=== PATIENT | female | born 1955 | race Caucasian/White ===

== ENCOUNTER 2019-12-20 06:37 | Inpatient (IN) ==
--- NOTE | 2019-12-13 15:00 | PAT Medication Instructions ---
Medication Instructions Date of Service December 13, 2019 Home Medications cholecalciferol (vitamin D3) 125 mcg PO QAM cyanocobalamin (vitamin B-12) 1,000 mcg PO QAM fenofibrate micronized 200 mg PO QAM pantoprazole 40 mg PO QAM rosuvastatin 20 mg PO QAM STOP taking 48 hours before surgery fenofibrate micronized 200 mg PO QAM DO NOT take the morning of surgery cholecalciferol (vitamin D3) 125 mcg PO QAM cyanocobalamin (vitamin B-12) 1,000 mcg PO QAM Take morning of surgery With a small sip of water, OTHERWISE NOTHING TO EAT OR DRINK AFTER MIDNIGHT: pantoprazole 40 mg PO QAM rosuvastatin 20 mg PO QAM Other Notes If you have any questions please call us at [phone] or [phone] or [phone] or [phone]
--- NOTE | 2019-12-15 12:13 | Anesthesiology Consultation ---
Date of Service December 15, 2019 Assessment & Plan (1) Encounter for pre-operative examination: COVID Status: As of 12/14 assessment, patient denies travel to endemic area, known exposure/sick contacts, or symptoms of COVID19. Patient instructed that they and their household members must follow strict social distancing guidelines, wear a mask in public and avoid travel for 14 days prior to surgery. Preoperative COVID19 testing completed today 12/14 at surgeon's office. 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 PCP Clearance 12/10/19 (addendum 12/16) = "Labs, chest x-ray, ekg grossly normal. Medically cleared for surgery." Chart Review Chart Review: Acceptable Risk for Surgery and Patient seen in Pre Admission Testing Teaching & Discussion Instructed NPO after midnight before surgery, except medications with 15 cc of w ater. Medication instructions provided according to the PAT guidelines. History Surgery Operation Date: 12/20/19 09:00 Proposed Procedures p Right Total Knee Arthroplasty - John Paul Sarabia DO Height/Weight Height: 5 ft 6 in Weight: 89.4 kg Allergies Allergy/AdvReac Type Severity Reaction Status Date / Time thimerosal Allergy Intermediate Hives Verified 12/07/19 15:32 Medications Home Medications Medication Instructions Recorded Confirmed Last Taken cholecalciferol (vitamin D3) 125 mcg PO QAM 12/07/19 12/07/19 Unknown [Vitamin D3] cyanocobalamin (vitamin B-12) 1,000 mcg PO QAM 12/07/19 12/07/19 Unknown fenofibrate micronized 200 mg PO QAM 12/07/19 12/07/19 Unknown pantoprazole 40 mg PO QAM 12/07/19 12/07/19 Unknown rosuvastatin 20 mg PO QAM 12/07/19 12/07/19 Unknown Past Medical History Medical History (Updated 12/15/19 @ 12:15 by Drew Bryant) GERD (gastroesophageal reflux disease) Hyperlipidemia Osteoarthritis Pulmonary embolism OVER 40 YEARS AGO (CAUSED BY CONTROL) Restless leg syndrome Exercise / Class Metabolic Activity II 4-5 Yardwork/Stairs/Walk up hill Past Family History Family History (Updated 12/07/19 @ 15:40 by Rupali Piña RN) Other No significant family history Past Surgical History Surgical History H/O eye surgery TEAR DUCT SURGERY History of appendectomy History of bilateral tubal ligation History of colonoscopy History of esophagogastroduodenoscopy (EGD) History of flexible sigmoidoscopy History of hysteroscopy History of tonsillectomy and adenoidectomy History of total knee replacement LEFT [place] teeth removed Past Anesthesia History No Hx of Anesthesia Complications and No Family Hx of Anesthesia Complications History of PONV No Hx of PONV and Hx of Motion Sickness Social History Smoking Status: Never smoker Do You Dip or Chew Tobacco: No Hx Alcohol Use: Yes Alcohol type: beer alcohol intake frequency: a few times a month Hx Substance Use: No substance use type: does not use Review of Systems Pt denies any recent chest pain, shortness of breath, palpitations, cough above baseline cough she feels due to seasonal allergies, fever, URI, or uncontrolled acid reflux. Physical Exam Vital Signs BP: 132/86 P: 73bpm SPO2: 96% RA T: 98.1 F R: 16 ENMT Mouth: + dental bridge (upper R) and + dental restorations (bridge and one crown); no chipped teeth and no loose teeth Thyromental Distance: < 3.5 Finger Breadths (3) Mallampati Class: II Neck normal visual inspection; neck extension not limited Respiratory normal respiratory effort Auscultation: lungs clear to auscultation bilaterally Cardiovascular Rate/Rhythm: regular rate and regular rhythm Heart Sounds: no murmur Extremities: no edema Testing Laboratory Results 12/15/19 12:20 12/15/19 12:20 PT 10.5 Seconds (9.0-12.0) 12/15/19 12:20 INR 1.0 (0.9-1.1) 12/15/19 12: APTT 25.2 Seconds (21.0-31.0) 12/15/19 12:20 Hemoglobin A1c 6.0 % (4.5-5.6) H 12/15/19 12:20 Urine Color Yellow 12/15/19 Unknown Urine Appearance Clear (Clear) 12/15/19 Unknown Urine pH 7.5 (4.5-7.5) 12/15/19 Unknown Ur Specific [place] 1.008 (1.000-1.030) 12/15/19 Unknown Urine Protein Negative (Negative) 12/15/19 Unknown Urine Glucose (UA) Negative (Negative) 12/15/19 Unknown Urine Ketones Negative (Negative) 12/15/19 Unknown Urine Nitrite Negative (Negative) 12/15/19 Unknown Ur Leukocyte Esterase Negative (Negative) 12/15/19 Unknown Blood Type A Positive 12/15/19 12:20 Antibody Screen NEGATIVE 12/15/19 12:20 12/15/19 Unknown Urine Culture - Final Urine,Clean Catch Three types of organisms present, all low counts probable skin lazarus. No further identifications or sensitivities to follow. Electrocardiogram Date: 12/15/19 Findings: + NSR @ (64bpm with 1st degree AV block) and + no change from (2016) Low voltage QRS. Chest X-Ray Date: 12/15/19 1. No acute cardiopulmonary findings. 2. Mild cardiomegaly (unchanged).
--- NOTE | 2019-12-15 13:17 | XRay Report ---
XR chest Pre-admission PA/Lat CLINICAL HISTORY: Preoperative evaluation. COMPARISON STUDY: Chest radiograph September 19, 2015. FINDINGS: Lung volumes are normal. There is no pneumothorax or pleural effusion. There is no consolid ation or evidence for pulmonary edema. Mild cardiomegaly is unchanged. IMPRESSION: 1. No acute cardiopulmonary findings. 2. Mild cardiomegaly. ACT 112: Negative or not required by law. Electronically signed by: David Bernal M.D. 12/15/2019 1:15 PM
[2019-12-15 13:21] LABS: Basophils # (auto) 0.05 K/uL (0-0.2); Basophils % (auto) 0.7 %; Eosinophils # (auto) 0.24 K/uL (0-0.5); Eosinophils % (auto) 3.2 %; Hematocrit (blood only) 38.4 % (37-47); Hemoglobin 12.8 g/dL (12.0-16.0); Immature Granulocytes # (auto) 0.02 K/uL (0.00-0.02); Immature Granulocytes % (auto) 0.3 %; Lymphocytes # (auto) 2.47 K/uL (1.2-3.4); Lymphocytes % (auto) 32.9 %; Mean Corpuscular Hgb Conc 33.3 g/dL (32-36); Mean Corpuscular Volume 89.9 fL (80-100); Mean Platelet Volume 9.8 fL (7.4-10.4); Monocytes # (auto) 0.62 K/uL (0.11-0.59); Monocytes % (auto) 8.3 %; Neutrophils # (auto) 4.11 K/uL (1.4-6.5); Neutrophils % (auto) 54.6 %; Platelet Count 365 K/uL (130-400); RDW Coefficient of Variation 13.1 % (11.5-14.5); RDW Standard Deviation 42.8 fL (36.4-46.3); Red Blood Count 4.27 M/uL (4.2-5.4); White Blood Count 7.51 K/uL (4.8-10.8)
[2019-12-15 13:22] LABS: Appearance Urine Clear (Clear); Bilirubin Urine Negative (Negative); Blood Urine Negative (Negative); Color Urine Yellow; Glucose Urine UA Negative (Negative); Ketones Urine Negative (Negative); Leukocyte Esterase Urine Negative (Negative); Nitrite Urine Negative (Negative); Protein Urine Negative (Negative); Specific Gravity Urine 1.008 (1.000-1.030); Urobilinogen Urine Negative (Negative); pH Urine 7.5 (4.5-7.5)
[2019-12-15 13:32] LABS: BUN Creatinine Ratio 18.7 (10-20); Calcium 10.3 mg/dl (8.5-10.1); Creatinine Clr Calc Pharmacy 90.2 ml/min; Est GFR (African American) 105.4; Est GFR (Non-African American) 90.9; Potassium 4.1 mmol/L (3.5-5.1)
[2019-12-15 13:33] LABS: Partial Thromboplastin Ratio 0.9; Partial Thromboplastin Time 25.2 Seconds (21.0-31.0); Prothrombin Time 10.5 Seconds (9.0-12.0)
[2019-12-15 13:34] LABS: Estimated Average Glucose 126 mg/dl
--- NOTE | 2019-12-15 14:39 | Electrocardiogram Report ---
Test Reason : Blood Pressure : / mmHG Vent. Rate : 064 BPM Atrial Rate : 064 BPM P-R Int : 232 ms QRS Dur : 086 ms QT Int : 412 ms P-R-T Axes : 024 018 062 degrees QTc Int : 425 ms Sinus rhythm with 1st degree A-V block Low voltage QRS Borderline ECG When compared with ECG of 19-SEP-2015 11:39, No significant change was found Confirmed by Domenico Kumar ([id number]) on 12/15/2019 2:38:50 PM Referred By: John Paul Sarabia Confirmed By:Alfredito Kumar
--- NOTE | 2019-12-19 14:39 | History & Physical Report ---
Date of Service December 20, 2019 Assessment & Plan (1) Degenerative joint disease of knee, right: I have indicated the patient for right total knee replacement. The risks, benefits and complications of surgery were explained to the patient which include but not limited to infection, acute blood loss, DVT/PE, injury to nerves, vessels, bone, soft tissue, arthrofibrosis, chronic pain, failure of the prosthesis, knee dislocation, leg length discrepancy, need for additional surgery, cardiac and pulmonary events and . The patient wished to proceed with surgery and informed consent was obtained at this time. We will plan for lovenox post-operatively for DVT prophylaxis. Upon discharge the patient will be discharged home with home health services. Appropriate clearances by PCP w ere obtained. History of Present Illness Chief Complaint: Right knee pain/djd Primary Care Provider: Jose Lee The patient is a 64 year old female who presents with complaints of severe right knee pain and DJD. The patient has failed outpatient conservative treatments to this point which included NSAIDS, PT, home exercise/walking program, declined further conservative treatments such as injections due to ineffectiveness previously. The patient's pain and limited function have progressed to the point where they severely hinder their activities of daily living and they no longer tolerate exercise programs. They are requesting to proceed with total knee replacement surgery. Allergies Allergy/AdvReac Type Severity Reaction Status Date / Time thimerosal Allergy Intermediate Hives Verified 12/20/19 07:49 Home Medications Home Medications Medication Instructions Recorded Confirmed Type cholecalciferol (vitamin D3) 125 mcg PO QAM 12/07/19 12/07/19 History [Vitamin D3] cyanocobalamin (vitamin B-12) 1,000 mcg PO QAM 12/07/19 12/20/19 History fenofibrate micronized 200 mg PO QAM 12/07/19 12/07/19 History pantoprazole 40 mg PO QAM 12/07/19 12/20/19 History rosuvastatin [Crestor] 20 mg PO QAM 12/07/19 12/07/19 History Past Med/Surg History Medical History GERD (gastroesophageal reflux disease) Hyperlipidemia Osteoarthritis Pulmonary embolism OVER 40 YEARS AGO (CAUSED BY CONTROL) Restless leg syndrome Surgical History H/O eye surgery TEAR DUCT SURGERY History of appendectomy History of bilateral tubal ligation History of colonoscopy History of esophagogastroduodenoscopy (EGD) History of flexible sigmoidoscopy History of hysteroscopy History of tonsillectomy and adenoidectomy History of total knee replacement LEFT [place] teeth removed Family History Other No significant family history Social History Smoking Status: Never smoker Second Hand Exposure: Yes ( SMOKES); Do You Dip or Chew Tobacco: No; Tobacco Cessation Education Requested by Patient: No Hx Alcohol Use: Yes Alcohol type: beer Hx Substance Use: No Preferred Language: Mal[place]ian Logistics Director Required: No Beliefs That Will Affect Care: None Current Living Situation: Spouse Feels Safe at Home: Yes Safety Concerns: Feels Safe At This Time Assistive Devices: Glasses Review of Systems Review of Systems: All systems reviewed & are unremarkable except as noted in HPI & below Constitutional: as per Subjective / HPI Physical Exam Physical Exam: RLE NVSI +EHL/FHL/TA/GS SILT grossly, +2 DP pulse, compartments soft NT, limited painful ROM of the knee, 0-125 degrees flexion, +crepitus Constitutional: WD/WN, vitals as above Eyes: PERRL, conjunctivae normal, anicteric sclerae ENMT: external ear and nose normal, oropharynx normal Neck: trachea midline, no thyromegaly Respiratory: normal respiratory effort, lungs clear to auscultation Cardiovascular: RRR, no murmur, no edema Gastrointestinal (Abdomen): normal bowel sounds, soft, nontender, no hepatosplenomegaly Musculoskeletal: no cyanosis or clubbing, extremities motor strength 5/5 Skin: no rashes, warm and dry Neurologic: patellar DTR's 2+ bilat, sensation intact Psychiatric: A+Ox3, euthymic affect Lymphatic: no cervical or axillary lymphadenopathy Results & Data Results & Data ([facility]) Diagnostic Findings Multiple views of the knee demonstrates severe tricompartmental DJD with complete loss of the patellofemoral joint space. +osteophytes, +sclerosis. Pre Admission Testing Addendum Laboratory Results 12/15/19 12:20 12/15/19 12:20 PT 10.5 Seconds (9.0-12.0) 12/15/19 12:20 INR 1.0 (0.9-1.1) 12/15/19 12:20 APTT 25.2 Seconds (21.0-31.0) 12/15/19 12:20 Hemoglobin A1c 6.0 % (4.5-5.6) H 12/15/19 12:20 Urine Color Yellow 12/15/19 Unknown Urine Appearance Clear (Clear) 12/15/19 Unknown Urine pH 7.5 (4.5-7.5) 12/15/19 Unknown Ur Specific [place] 1.008 (1.000-1.030) 12/15/19 Unknown Urine Protein Negative (Negative) 12/15/19 Unknown Urine Glucose (UA) Negative (Negative) 12/15/19 Unknown Urine Ketones Negative (Negative) 12/15/19 Unknown Urine Nitrite Negative (Negative) 12/15/19 Unknown Ur Leukocyte Esterase Negative (Negative) 12/15/19 Unknown Blood Type A Positive 12/15/19 12: Antibody Screen NEGATIVE 12/15/19 12:20 12/15/19 Unknown Urine Culture - Final Urine,Clean Catch Three types of organisms present, all low counts probable skin lazarus. No further identifications or sensitivities to follow.
[~2019-12-20 06:37] MED LIST: ACETAMINOPHEN 500 MG TAB PO SCH; CEFAZOLIN 2000MG 2,000 MG/15 ML SYR IV SCH; CeleBREX 200 MG CAP PO SCH; FAMOTIDINE 20 MG TAB PO SCH; GABAPENTIN 300 MG CAP PO SCH; LR 500ML BOLUS, THEN 15ML/HR IV SCH; ROPIVACAINE 0.5% HCL/PF 150 MG, BUPIVACAINE 0.5% MPF 30 ML, EPINEPHrine 30MG/30ML (OR U... INSTIL SCH; TRANEXAMIC ACID 1,000 MG **IV Intra-op IV SCH; TRANEXAMIC ACID 1,000 MG **IV Pre-op IV SCH; dexAMETHasone 4 MG TAB PO SCH
[2019-12-20] MEDS ORDERED: BUPIVACAINE/EPINEPHRINE 0.25% 1:200,000 30 ML VIAL ONE (06:40)
[2019-12-20] MEDS ORDERED: DEXAMETHASONE SOD INJ 4 MG/ML VIAL ONE (06:40)
[2019-12-20] MEDS ORDERED: MIDAZOLAM HCL 1 MG/ML 2ML VIAL ONE (07:48)
[2019-12-20] MEDS ORDERED: fentaNYL citrate 100 MCG/2 ML VIAL ONE (07:48)
[2019-12-20] MEDS ORDERED: LIDOCAINE HCL 2% 2 ML VIAL/AMP(20MG/ML) INFIL ONE (07:49)
[2019-12-20] MEDS ORDERED: PROPOFOL IV EMULSION 10 MG/ML 20 ML VIAL IV ONE ×3 (07:49→10:54)
[2019-12-20] MEDS ORDERED: ONDANSETRON INJ 2 MG/ML 2 ML VIAL ONE (07:49)
--- NOTE | 2019-12-20 09:12 | History & Physical Bridge Note ---
Date of Service December 20, 2019 History & Physical Bridge Note I have examined the patient, reviewed the History & Physical and in the interval since the performance of the History & Physical I have noted the following changes of clinical significance: no changes noted
[2019-12-20] MEDS ORDERED: BUPIVACAINE 0.5 % 5 MG/1 ML PF 10ML VIAL ONE (09:17)
[2019-12-20] MEDS ORDERED: BACITRACIN INJ 50,000 UNIT VIAL ONE (09:18)
[2019-12-20] MEDS ORDERED: ORTHO JOINT ANESTHETIC ONE (09:18)
[2019-12-20] MEDS ORDERED: ONDANSETRON INJ 2 MG/ML 2 ML VIAL IV PRN ×2 (10:25→12:30)
[2019-12-20] MEDS ORDERED: fentaNYL citrate 100 MCG/2 ML VIAL IV PRN (10:25)
[2019-12-20] MEDS ORDERED: ATROPINE SULFATE 0.1 MG/ML 10ML SYR IV PRN (10:25)
[2019-12-20] MEDS ORDERED: ePHEDrine sulfate 50 MG/ML AMP IV PRN (10:25)
--- NOTE | 2019-12-20 11:04 | Post Operative Brief Note ---
Immediate Post Op Note v1 Date of Surgery December 20, 2019 Pre & Post Diagnosis Operation Date: 12/20/19 09:00 Pre-Op Diagnosis: Osteoarthritis, Right Knee Post-Op Diagnosis: Osteoarthritis, Right Knee I identified the patient and participated in the time-out.: Yes Procedure Operation Date: 12/20/19 09:00 Actual Procedures p Right Total Knee Arthroplasty(Right) - John Paul Sarabia DO Surgeon John Paul Sarabia DO Distresser Carlo Delcid Estimated Blood Loss 75 Findings Consistent with Post-Op Diagnosis Fluids 1300 cc LR Specimens Proximal tibia and distal femur bone fragment Anesthesia Type Spinal MAC Complications none Disposition Disposition: Recovery Room Overlapping Procedure I was present for: the critical portions of procedure. I was immediately available: during the entire case. Back up surgeon: was not required during procedure.
--- NOTE | 2019-12-20 11:11 | Operative Report ---
Post Operative Report Pre & Post Diagnosis Operation Date: 12/20/19 09:00 Pre-Op Diagnosis: Osteoarthritis, Right Knee Post-Op Diagnosis: Osteoarthritis, Right Knee I identified the patient and participated in the time-out.: Yes Procedure Operation Date: 12/20/19 09:00 Actual Procedures p Right Total Knee Arthroplasty(Right) - John Paul Sarabia DO Surgeon John Paul Sarabia DO Vending Machine Host/Hostess Carlo Delcid Estimated Blood Loss 75 Findings Consistent with Post-Op Diagnosis Fluids 1300 cc LR Specimens Proximal tibia and distal femur bone fragment Anesthesia Type Spinal MAC Complications none Disposition Disposition: Recovery Room Indications The patient is a 64-year-old female presents with long history of severe right knee tricompartmental DJD and failed outpatient conservative treatments including NSAIDs, bracing, injections and home walking/exercise program. The patient's symptoms have progressed to the point where it has been difficult to perform normal activities of daily living. I have indicated the patient for a right total knee arthroplasty, the risks and benefits and complications of the procedure include but are not limited to infection bleeding damage to bone, nerves, vessels, surrounding soft tissue, blood clots, loss of function, leg length discrepancy, dislocation, failure of the components, need for additional surgery and . The patient wished to proceed with surgery at this time and informed consent was obtained. Appropriate clearances were obtained. Description of Procedure The patient was taken to the operating room and appropriate spinal anesthesia was administered. She was placed supine on the operating room table. A foot roll was placed so we could flex the knee during the procedure as needed. A pneumatic tourniquet was placed on the proximal aspect of the thigh. The right lower extremity was prepped and draped in usual sterile fashion. A timeout was performed, patient and site clifford verified and IV antibiotics given. The leg was elevated, exsanguinated with Esmarch bandage. Pneumatic tourniquet was raised to 300 mmHg. A longitudinal midline incision was made over the anterior knee. Skin was incised sharply and subcutaneous flaps were elevated. Incision was made through the medial retinaculum extended up in the mid third of the quadriceps tendon and extended down to the medial tibial tubercle. The Tenorio [employer] Nephew Journey 2.0 total knee arthroplasty system was used using [employer]fusion[employer] MRI templating and femur sized for a 6, tibial sized for a 4. To expose the knee the infrapatellar fat pad was resected. The lateral synovial bands were released. The cruciate ligaments were resected. The meniscal remnants were resected. The fat pad over the anterior femur just above the articular surface for placement of the component in that area was resected. The knee was flexed and retractors were placed and the custom femoral cutting block was pinned in position and the distal femoral cut was made. Next, the size 6, 5-in-1 cutting block was pinned into place and the anterior, posterior and chamfer cuts were made. The 5-in-1 cutting block was removed. Next, attention was taken back to the tibia which was subluxed anteriorly and the custom tibial cutting block was pinned in position and the proximal tibial cut was made. The tibia guide was removed and proximal tibial bone fragment removed utilizing straight osteotome, electrocautery and luc. Laminar candy cooker helper was placed laterally and the ACL and PCL were removed followed by the medial meniscus and posterior medial osteophytes. Aquamantys was utilized for any posterior medial bleeders and Orthomix injected into the posterior medial capsule. A laminar candy cooker helper was then placed in the medial compartment and the lateral meniscus and posterior osteophytes were removed. Aquamantys was utilized for any posterior lateral bleeders and Orthomix injected into the posterior lateral capsule. Next, ligamentous balance was assessed in extension and flexion utilizing spacer block and drop tejinder. At this time, the tibia was then resubluxed and the 4 tibial trial was placed in position with appropriate external rotation in relationship to the tibial tubercle. The tibial drill and punch for the stem was used. Next the 6 femoral trial was inserted, centered and the notch cutting devices were used to finish prepping the femur. A trial 10 mm tibial articulating surface was inserted assessed ligamentous balance, the tibial size was increased sequentially testing for knee balance in full ROM, varus/valgus. The 12 PS trial insert gave balanced ligaments through full range of motion. At this time the knee was extended and a subperiosteal peel lateral release was performed around the patella. Patella width was measured and the patella was prepped utilizing free hand technique and the 3 drill holes were made for the pegs. The excess lateral facet was beveled off to prevent any impingement. A 32 mm oval patella button was placed and the patella tracked centrally. The trials were removed and the knee was copiously irrigated with pulsatile lavage antibiotic solution with bacitracin. The final components were then cemented into place and trial tibial articulating surface inserted. Final components were the 6 Oxinium posterior stabilized Tenorio [employer] Nephew Journey 2.0 left femoral component, size 4 primary tibial baseplate and 32mm patella. Once the cement cured, we trialed once more with the 12 mm PS tibial articulating surface and found the knee to be stable throughout full ROM. The trial component was removed and the final 12 mm PS tibial articular surface was inserted. Jossy-incisional soft tissue was injected utilizing [place] Orthomix which includes a combination of Ropivicaine 0.5% 150mg, Bupivicaine 0.5%/Epinephrine 1:200,000 30ml, Toradol 30mg, Dexamethasone 4mg, Ketamine 10mg, Clonidine 100mcg and NSS 30ml solution. A Betadine soak was performed. After 3 minutes, the knee was once more irrigated with copious sterile saline solution with bacitracin. The medial retinaculum were closed with interrupted [id number] #1 Vicryl sutures. The knee was taken through full range of motion and repair was secure. Subcutaneous tissues were closed with interrupted 2-0 Vicryl sutures followed by 3-0 V lock and then the skin was closed with Tari minh Dermabond skin closure system. The sterile dressings were applied which included Telfa, 4 x 4's and an Luís wrap from the foot to thigh. Tourniquet was let down at 87 minutes and the patient had good capillary refill to the extremity. The patient tolerated the procedure well and was taken to the PACU in stable condition. Due to the complex nature of the procedure, the entire surgery was performed with the operational assistance of Carlo Delcid PA-C. The executive administrative assistant, under direct supervision, was involved in the actual performance of all aspects of the surgical procedure including patient positioning, hemostasis, tissue retraction, instrument management and wound closure. I attest to the content of the Intraoperative Record and any orders documented therein. Any exceptions are noted below.
--- NOTE | 2019-12-20 11:54 | XRay Report ---
XR knee RT 1 or 2V routine CLINICAL HISTORY: Postoperative evaluation. COMPARISON: None FINDINGS: Alignment of the total right knee arthroplasty is anatomic. There is no periprosthetic fra cture or unexpected radiopaque foreign body. IMPRESSION: Expected findings following total right knee arthroplasty. ACT 112: Negative or not required by law. Electronically signed by: David Bernal M.D. 12/20/2019 11:53 AM
--- NOTE | 2019-12-20 12:04 | Anesthesiology Progress Note ---
Date of Service December 20, 2019 Anesthesia Post Procedure Vital Signs Vital Signs: Temp Pulse Pulse Resp BP Pulse Ox 12/20/19 11:55 80 14 131/78 95 12/20/19 11:45 92 H 20 117/68 95 12/20/19 11:39 37.7 C H 87 16 122/68 95 12/20/19 07:54 37.0 C 72 20 151/92 H 96 Transfer of Care Handoff Completed per policy Notes Mental Status: alert / awake / arousable Patient Amnestic to Procedure: Yes Nausea / Vomiting: adequately controlled Pain: adequately controlled Airway Patency, RR, SpO2: stable & adequate BP & HR: stable & adequate Hydration State: stable & adequate Neuraxial Anesthesia: was administered and sensory block is resolving Anesthetic Complications: no major complications apparent and Pt Satisfied with anesthetic care
[2019-12-20] MEDS ORDERED: METOCLOPRAMIDE HCL INJ 5 MG/ML 2 ML VIAL IV PRN (12:30)
[2019-12-20] MEDS ORDERED: HYDROmorphone INJ 0.5 MG/0.5 ML SYR IV PRN (12:30)
[2019-12-20] MEDS ORDERED: NALOXONE HCL 0.4 MG/1 ML VIAL/CARP IV PRN (12:30)
[2019-12-20] MEDS ORDERED: MAGNESIUM HYDROXIDE SUSP 30 ML UDC PO PRN (12:30)
[2019-12-20] MEDS ORDERED: bisacodyL 10 MG SUPP PR PRN (12:30)
[2019-12-20] MEDS: ACETAMINOPHEN 500 MG TAB PO SCH ×2 (13:18→21:36)
[2019-12-20] MEDS: SODIUM CHLORIDE 0.9% 1000ML 1,000 ML IV SCH ×2 (13:19→23:24)
[2019-12-20] MEDS: KETOROLAC TROMETHAMINE 15 MG/ML VIAL IV SCH ×2 (13:19→18:18)
--- NOTE | 2019-12-20 14:59 | Orthopedic Progress Note ---
Date of Service December 20, 2019 Assessment & Plan (1) Degenerative joint disease of knee, right: Status post right total knee arthroplasty -Ancef x24 -DVT prophylaxis: SCDs, teds, Lovenox daily -Weight-bear as tolerates right lower extremity -PT/OT -Postoperative x-ray demonstrates a well aligned well fixed prosthesis without evidence of fracture or dislocation. -A.m. labs -DC planning Admission and Anticipated Discharge Date Admission Date: December 20, 2019 Subjective Post Operative Progress Note Patient seen sitting up in bed, comfortable, denies complaints, pain well controlled, no acute issues. Review of Systems Review of Systems: All systems reviewed & are unremarkable except as noted in HPI & below Constitutional: as per Subjective / HPI Physical Exam Physical Exam: RLE NVSI +EHL/FHL/TA/GS SILT grossly, +2 DP pulse, compartments soft NT, dressing cdi. Constitutional: WD/WN, vitals as above Results & Data ([facility]) Vital Signs (Past 12 Hours) Vital Signs Temp Pulse Pulse Resp BP Pulse Ox 12/20/19 14:00 81 16 138/81 93 12/20/19 13:34 86 18 144/82 H 96 12/20/19 12:49 71 16 138/88 98 12/20/19 12:05 37.7 C H 80 18 125/81 97 12/20/19 11:55 80 14 131/78 95 12/20/19 11:45 92 H 20 117/68 95 12/20/19 11:39 37.7 C H 87 16 122/68 95 12/20/19 07:54 37.0 C 72 20 151/92 H 96
[2019-12-20] MEDS: CEFAZOLIN 2000MG 2,000 MG/15 ML SYR IV SCH (16:58)
[2019-12-20] MEDS: HYDROCODONE/ACETAMOPHEN 5/325MG TAB PO PRN ×2 (17:01→21:38)
[2019-12-20] MEDS: DOCUSATE SODIUM 100 MG CAP PO SCH (20:25)
[2019-12-20] MEDS ORDERED: SENNA 8.6 MG TAB PO SCH (21:00)
[2019-12-21] MEDS: CEFAZOLIN 2000MG 2,000 MG/15 ML SYR IV SCH (01:44)
[2019-12-21] MEDS: KETOROLAC TROMETHAMINE 15 MG/ML VIAL IV SCH ×2 (01:45→06:41)
[2019-12-21] MEDS: ACETAMINOPHEN 500 MG TAB PO SCH (04:15)
[2019-12-21 06:02] LABS: Hematocrit (blood only) 32.2 % (37-47); Hemoglobin 10.6 g/dL (12.0-16.0); Mean Corpuscular Hgb Conc 32.9 g/dL (32-36); Mean Corpuscular Volume 91.2 fL (80-100); Mean Platelet Volume 9.3 fL (7.4-10.4); Platelet Count 282 K/uL (130-400); RDW Coefficient of Variation 13.4 % (11.5-14.5); RDW Standard Deviation 44.2 fL (36.4-46.3); Red Blood Count 3.53 M/uL (4.2-5.4); White Blood Count 18.69 K/uL (4.8-10.8)
[2019-12-21 06:35] LABS: BUN Creatinine Ratio 23.4 (10-20); Calcium 8.7 mg/dl (8.5-10.1); Creatinine Clr Calc Pharmacy 87.2 ml/min; Est GFR (African American) 100.2; Est GFR (Non-African American) 86.4
[2019-12-21] MEDS: DOCUSATE SODIUM 100 MG CAP PO SCH (08:24)
[2019-12-21] MEDS ORDERED: ENOXAPARIN INJ 40 MG/0.4 ML SYR SQ SCH (09:00)
[2019-12-21] MEDS ORDERED: ROSUVASTATIN CALCIUM 20 MG TAB PO SCH (09:00)
[2019-12-21] MEDS ORDERED: PANTOprazole 40 MG TAB PO SCH (09:00)
[2019-12-21] MEDS ORDERED: MULTIVITAMIN TAB PO SCH (09:00)
--- NOTE | 2019-12-21 11:45 | Orthopedic Progress Note ---
Date of Service December 21, 2019 Assessment & Plan (1) Degenerative joint disease of knee, right: Status post right total knee arthroplasty POD#1 -Ancef x24 -DVT prophylaxis: SCDs, teds, Lovenox daily -Weight-bear as tolerates right lower extremity -PT/OT -Postoperative x-ray demonstrates a well aligned well fixed prosthesis without evidence of fracture or dislocation. -A.m. labs - as above, hgb 10.6 -DC planning - home with Admission and Anticipated Discharge Date Admission Date: December 20, 2019 Subjective Post Operative Progress Note Patient seen sitting up in bed, comfortable, denies complaints, pain well controlled, no acute issues. Denies F/C/N/V/SOB/CP. Review of Systems Review of Systems: All systems reviewed & are unremarkable except as noted in HPI & below Constitutional: as per Subjective / HPI Physical Exam Physical Exam: RLE NVSI +EHL/FHL/TA/GS SILT grossly, +2 DP pulse, compartments soft NT, dressing cdi. Constitutional: WD/WN, vitals as above Results & Data ([facility]) Vital Signs (Past 12 Hours) Vital Signs Temp Pulse Resp BP Pulse Ox 12/21/19 11:14 36.5 C 82 18 128/76 96 12/21/19 10:38 36.4 C L 70 18 131/82 94 12/21/19 07:07 36.4 C L 70 18 131/82 94 12/21/19 03:28 36.7 C 66 16 136/75 95 Laboratory Results 12/21/19 12/21/19 Range/Units 05:41 05:41 WBC 18.69 H (4.8-10.8) K/uL RBC 3.53 L (4.2-5.4) M/uL Hgb 10.6 L (12.0-16.0) g/dL Hct 32.2 L (37-47) % MCV 91.2 (80-100) fL MCH 30.0 (25-34) pg MCHC 32.9 (32-36) g/dL RDW Std Deviation 44.2 (36.4-46.3) fL RDW Coeff of Yuridia 13.4 (11.5-14.5) % Plt Count 282 (130-400) K/uL MPV 9.3 (7.4-10.4) fL Sodium 139 (136-145) mmol/L Potassium 4.0 (3.5-5.1) mmol/L Chloride 110 H (98-107) mmol/L Carbon Dioxide 24 (21-32) mmol/L Anion Gap 5.0 (3-11) BUN 17 (7-18) mg/dl Creatinine 0.73 (0.6-1.2) mg/dl Est Cr Clr Drug Dosing 87.2 ml/min Est GFR ( Amer) 100.2 Est GFR (Non-Af Amer) 86.4 BUN/Creatinine Ratio 23.4 H (10-20) Glucose 135 H (70-99) mg/dl Calcium 8.7 (8.5-10.1) mg/dl
[2019-12-21] MEDS ORDERED: CeleBREX 200 MG CAP PO SCH (21:00)
--- NOTE | 2019-12-21 21:20 | Discharge Summary ---
Date of Service December 21, 2019 Admission HPI Per Admitting Provider The patient is a 64 year old female who presents with complaints of severe right knee pain and DJD. The patient has failed outpatient conservative treatments to this point which included NSAIDS, PT, home exercise/walking program, declined further conservative treatments such as injections due to ineffectiveness previously. The patient's pain and limited function have progressed to the point where they severely hinder their activities of daily living and they no longer tolerate exercise programs. They are requesting to proceed with total knee replacement surgery. Principal Diagnosis Right total knee replacement -Right knee DJD Discharge Exam RLE NVSI +EHL/FHL/TA/GS SILT grossly, +2 DP pulse, compartments soft NT, dressing cdi. Constitutional WD/WN, vitals as above Discharge Data Allergies Allergy/AdvReac Type Severity Reaction Status Date / Time thimerosal Allergy Intermediate Hives Verified 12/20/19 07:49 Consultations 12/20/19 12:30 Consult Case Management - Discharge Planning Routine Procedures Performed Operation Date: 12/20/19 09:00 Actual Procedures p Right Total Knee Arthroplasty(Right) - John Paul Sarabia DO Ordered Studies 12/20/19 05:00 US - OR guided needle placemen Routine Hospital Course (1) Degenerative joint disease of knee, right: The patient is a 64 -year-old female who presents with long standing history of severe right knee DJD and failed outpatient conservative treatments. The patient's symptoms have progressed to the point where it has been difficult to perform even normal activities of daily living. I indicated the patient for a right total knee arthroplasty, the risks, benefits and complications of the procedure include but not limited to infection, bleeding, damage to bone, nerves, vessels, surrounding soft tissue, may develop blood clots, loss of function, leg length discrepancy, dislocation, failure of the components, loosening of the components, the need for additional surgery and . The patient wished to proceed with surgery at this time and informed consent was obtained. Hospital Course: On 12/20/19 the patient was taken to the operating room, adequate anesthesia administered and underwent a right total knee arthroplasty. The patient tolerated the procedure well and was taken to the PACU in stable condition. Post-operatively the patient was started on a DVT ppx medication and given appropriate IV antibiotics. Consults were placed to physical therapy, occupational therapy and case management. On POD#1, the patient did well overnight and their pain was well controlled. Labs were drawn and the Hgb was 10.6. The patient progressed well with PT. Dressings were changed at this time and the incision was clean, dry and intact. The patients hospital stay was relatively uneventful and they were deemed stable by the orthopedic team and consultants to be discharged home with on 12/21/19. Discharge Instructions: Upon discharge the patient may weight bear as tolerates through their operative extremity. They were instructed to keep the incision clean and dry at all times. The patient may shower but should not submerge the incision, avoid bathing, pools and hot tubes. The patient was given a script for pain medication and should take as instructed. The patient was given a script for DVT ppx Lovenox 40mg daily and should take as directed. The patient was instructed to not drive or travel for long distances until cleared to do so. If the patient develops any symptoms of fevers, chills, nausea, vomiting, increased redness, swelling, pain or drainage from the surgical site, they should notify the office and/or proceed to the nearest emergency room. The patient should follow up in 10-14 days after surgery for their routine post-operative follow-up appointment and should call the office to confirm the date and time. Status post right total knee arthroplasty POD#1 -Ancef x24 -DVT prophylaxis: SCDs, teds, Lovenox daily -Weight-bear as tolerates right lower extremity -PT/OT -Postoperative x-ray demonstrates a well aligned well fixed prosthesis without evidence of fracture or dislocation. -A.m. labs - as above, hgb 10.6 -DC planning - home with Total Time Total Time Spent Total Time Spent (In Minutes): 30 Discharge Plan Discharge Items Patient Disposition: Home - Home Health Services Reason For Visit: Osteoarthritis, Right Knee Discharge Diagnosis: Right total knee replacement -Right knee DJD Condition on Discharge: Good Activity: Per Instructions section Lifting: Wait until after follow-up appointment Bathing: Keep incision dry Bathing Comment: No bathing, pools or hot tubs Sexual Activity: Wait until after follow-up appointment Exercise/Sports: Wait until after follow-up appointment Driving/Machine Use: No driving Weightbearing: Full weightbearing Non-emergency contact: Primary Care Provider and Surgeon Call non-emergency contact if: you have any medication questions, your symptoms worsen, your pain is not controlled, your pain is worsening, your pain is unusual for you, your pain is concerning for you, you have a fever, your temperature is above 101, your wound has increased redness, your wound has increased drainage and your wound pain has increased Follow-up/Referrals: Jose Lee [Primary Care Provider] - Diet: Regular Addtl Attending Provider Instructions: ACTIVITY RECOMMENDATIONS: SELF CARE INSTRUCTIONS AFTER TOTAL KNEE REPLACEMENT A. You may need to continue a physical therapy program after discharge from the hospital. There are several options available to you. Your doctor will assist you in selecting the best one for you. 1. An out-patient facility 2 to 3 times a week for therapy or home therapy. 2. Continue working on all exercises taught to you in the hospital. Your goals should be to increase bending of your knee to 90 degrees and beyond and to fully straighten your knee. B. You may progress at your own pace from walking with a walker or crutches to a cane; then to no assistive devices. C. Make walking a part of your daily routine. Be up as much as comfortable with rest periods throughout the day. Rest with leg elevation is very important. Use the ice wrap frequently for the first 3-4 weeks. D. There are no restrictions on activities. You may ride in a car, shop, participate in recording studio set up worker and all social activities. E. Wear the long elastic stockings (MIKAYLA hose) 20 hours a day for 2 weeks after surgery. They can be removed several times a day for laundering and for a bath. F. You may shower, no tub baths until cleared by your doctor. SPECIAL CARE INSTRUCTIONS: VERY IMPORTANT TO READ AND REVIEW A. There are a few signs you need to watch for after you are home. Call [facility] if you notice any of the followin. Increased severe knee pain. Some pain is expected especially when you exercise. 2. Increased swelling in your leg or knee; pain or swelling of the calf muscle in either lower leg. 3. Any fluid drainage from the incision. 4. Shortness of breath or chest pain. B. Please call [facility] at if you have any concerns or questions about your operation or recovery. The doctor or his nurse will return your call promptly. C. You must take antibiotics before dental work, bladder, bowel or other surgery. Your doctor will provide you with a permanent care to carry describing this precaution. IMPORTANT: * REMEMBER TO TAKE LOVENOX 40MG DAILY, FOR 4 WEEKS UNLESS OTHERWISE DIRECTED. THIS IS YOUR BLOOD THINNER. * HIGH RISK PATIENTS MAY BE PRESCRIBED A STRONGER BLOOD THINNER. THIS WILL BE PROVIDED AT DISCHARGE. * CALL IF INCREASED PAIN, REDNESS, DRAINAGE OR FEVER GREATER THAT 101. * WEAR MIKAYLA HOSE 20 HOURS PER DAY FOR 2 WEEKS. *DERMABOND Prineo- This is a mesh tape dressing that is covered with glue. It should remain in place until the incision is properly healed, usually 10-14 days. This dressing is designed to naturally slough off. You may trim the excess mesh tape as it peels off. Incision may be briefly wet in a shower. Dry immediately by blotting with a clean, dry towel. Do not bath or swim until instructed by your doctor. Do not scratch, rub, or pick at the dressing. Do not apply any topical ointments or lotions until dressing is completely removed and/or instructed by your doctor. There may be a small piece of suture material at one end of your incision. Do not pull or trim this. If it is bothersome or catching on clothing, you may cover it with a band-aid. IF INCISION IS LEAKING THROUGH DRESSING, CALL THE OFFICE . FOLLOW UP VISIT: If appointment is not already scheduled: Please call [facility] to make a follow-up appointment for 2 weeks after your surgery at . Pending Studies at Discharge: No Stand-Alone Forms: My [facility], Opioid Pain Management, Smoking Cessation Medications and DC Order Prescriptions: New acetaminophen 500 mg Tablet 1,000 mg PO Q8 PRN (Reason: pain/fevers) Qty: 90 RF: 0 enoxaparin 40 mg/0.4 mL Syringe 40 mg subcut Q24H Qty: 28 RF: 0 hydrocodone-acetaminophen [[place]] 5-325 mg Tablet 1 tab PO Q6H MDD 4 PRN (Reason: pain) Qty: 30 RF: 0 sennosides [Senokot] 8.6 mg Tablet 17.2 mg PO HS PRN (Reason: constipation) Qty: 28 RF: 0 Continued fenofibrate micronized 200 mg Capsule 200 mg PO QAM RF: 0 pantoprazole 40 mg Tablet,Delayed Release (Dr/Ec) 40 mg PO QAM RF: 0 rosuvastatin [Crestor] 20 mg Tablet 20 mg PO QAM RF: 0 cholecalciferol (vitamin D3) [Vitamin D3] 125 mcg (5,000 unit) Tablet 125 mcg PO QAM RF: 0 cyanocobalamin (vitamin B-12) 1,000 mcg Capsule 1,000 mcg PO QAM RF: 0 Discharge Orders: Discharge Order (Routine); Ordered 12/21/19 Ordered By: John Paul Herman/Other Patient Handouts: DVT Post Op Prevention, Prediabetes, A1C Admission Data Admit Date/Time: 12/20/19 11:41 Attending Provider: John Paul Sarabia Admit Provider: John Paul Sarabia Primary Care Provider: Jose Lee Other Interventions: Discharge Summary Assessment (RN) Last Done: 12/21/19 10:38
== END 2019-12-21 13:57 | disposition home health service (06) | DRG 470 ==
LOC: 3E 06:37 → ASU 06:37 → OBSVTOIN 11:41